=== PATIENT | female | born 1990 | race Caucasian/White ===

== ENCOUNTER → 2016-11-21 | Outpatient (CLI) | payer OTHER | END | disposition home or self-care (01) | LOC: C.PAPS 09:26 | PROVIDERS: ATTEND Obstetrics & Gynecology | DX: Z01.411 Encounter for gynecological examination (general) (routine) with abnormal findings (principal) ==

== ENCOUNTER 2016-12-27 08:07 | Emergency (ER) | payer OTHER ==
[~2016-12-27] VITALS: Ht 165.1 cm; Wt 78.8 kg
[2016-12-27 08:10] VITALS: TEMP 36.9; Ht 165.1 cm; Wt 78.8 kg
[2016-12-27] MEDS ORDERED: SODIUM CHLORIDE 0.9% 1000ML 1,000 ML IV STA (08:21)
[2016-12-27] MEDS ORDERED: ONDANSETRON 4MG OD TAB PO ONE (08:30)
[2016-12-27] MEDS ORDERED: MoRPHine SULFATE 4 MG/ML 1 ML CARP\\VIAL IV STA (08:35)
[2016-12-27 08:55] LABS: BASO % 0.3 %; BASO ABS # 0.03 K/uL (0-0.2); COMPLETE YES; EOS % 1.8 %; HEMATOCRIT 40.5 % (37-47); IG% 0.1 %; LYMPH % 25.1 %; LYMPH ABS # 2.31 K/uL (1.2-3.4); MEAN CELL VOLUME 90.4 fL (80-100); MEAN CORPUSCULAR HEMOGLOBIN 31.9 pg (25-34); MEAN CORPUSCULAR HGB CONC 35.3 g/dl (32-36); MEAN PLATELET VOLUME 10.8 fL (7.4-10.4); NEUT % 66.7 %; PLATELET COUNT 242 K/uL (130-400); RED BLOOD COUNT 4.48 M/uL (4.2-5.4); WHITE BLOOD COUNT 9.19 K/uL (4.8-10.8)
[2016-12-27 09:10] LABS: PROTHROMBIN TIME (PATIENT) 10.4 SECONDS (9.0-12.0)
[2016-12-27 09:13] LABS: BUN/CREATININE RATIO 9.7 (10-20); CALCIUM 8.8 mg/dl (8.5-10.1); CREATININE 0.73 mg/dl (0.60-1.20); POTASSIUM 3.4 mmol/L (3.5-5.1)
[2016-12-27 09:16] LABS: ALB/GLOB RATIO 1.1 (0.9-2)
[2016-12-27 09:58] LABS: URINE APPEARANCE CLEAR (CLEAR); URINE BILIRUBIN NEG (NEG); URINE COLOR YELLOW; URINE NITRITE NEG (NEG); URINE PH 6.5 (4.5-7.5); URINE SPECIFIC GRAVITY 1.011 (1.000-1.030); UROBILINOGEN NEG (NEG)
[2016-12-27 10:00] LABS: MANUAL MICROSCOPIC REQUIRED? NO; REVIEW REQ? NO
--- NOTE | 2016-12-27 11:18 | DIAGNOSTIC IMAGING REPORT ---
LIMITED (US) (transabdominal and endovaginal scanning) CLINICAL HISTORY: Vaginal bleeding. . COMPARISON STUDY: No previous studies for comparison. FINDINGS: The uterus measured 9.2 x 4.8 x 6.1 cm. The maternal right ovary appear normal. There is a 21 mm left ovarian cyst likely representing a corpus luteum. There is a tiny saclike structure present within the uterus with a mean diameter of 3 mm. This likely are presenting an early intrauterine gestational sac. There is a suspected small surrounding subchorionic hematoma. No yolk sac or pole was visualized. Follow-up ultrasonography is recommended. There is trace free fluid, likely physiologic. IMPRESSION: 1. Tiny saclike structure within the uterus measuring 3 mm. This likely represents an early intrauterine gestation. There is a suspected small surrounding subchorionic hemorrhage. Follow-up ultrasonography is recommended to confirm a viable intrauterine Electronically signed by: Devon Beckford M.D. 12/27/2016 11:17 AM Dictated Date/Time: 12/27/2016 11:14 AM
[2016-12-27 11:40] VITALS: BP 113/56; PULSE 80; O2SAT 98
--- NOTE | 2016-12-27 13:58 | EMERGENCY ROOM VISIT NOTE ---
ED Visit Note First contact with patient: 08:15 Chief Complaint: I'm having cramping in my lower abdomen. History of Present Illness: Ms. Lincoln is a 26 year-old white female complaining of pelvic pain. Historically patient reports 2 and para 1. Her last was 4 years ago and she had no complications. She recently diagnosed her current at home and has not had follow-up with her [employer]. She did contact and before coming to the ED and was referred to the ED. Patient reports a acute onset of pelvic cramping that started last evening at approximately 11 PM, 10 hours ago, she reports the discomfort has been constant but has waxed and waned in intensity. Currently she rates her discomfort 6/10. Her pain is nonradiating. She has not taken medications for pain prior to arrival at the hospital. Associated with her pain she reports she's been nauseated but has not vomited, she checked her temperature last evening and it was 101F, she has been having urinary burning and has noted a pinkish drainage from her vagina; she denies any saturation with ailyn blood. Patient denies skin eruptions, skin color changes, upper respiratory tract symptoms, shortness of breath, chest pain, diarrhea, constipation, rectal bleeding, black/tarry stools, hematuria, back/flank pain. Review of Systems: As noted above in history of present illness. All body systems were reviewed and found to be negative as noted above. Past Medical History: As previously noted, Current Medications: Patient denies. Allergies to Medications: Clonazepam. Social History: Patient is currently in school; she feels safe in her home environment; she denies tobacco use. Physical Examination: Vital Signs: Date Time Temp Pulse Resp B/P (MAP) Pulse Ox O2 Delivery O2 Flow Rate FiO2 12/27/16 11:40 80 20 113/56 98 Room Air 12/27/16 09:39 78 20 121/71 100 Room Air 12/27/16 08:57 93 20 107/70 99 Room Air 12/27/16 08:10 36.9 89 18 121/78 99 Room Air GENERAL: 26-year-old female in mild to moderate distress due to pain, nontoxic- appearing, afebrile and hemodynamically stable. NEUROLOGICAL: Awake, alert and oriented to person, place and time. Answering questions appropriately and following commands. Normal gait. Good hand eye coordination. SKIN: Warm, dry and pink. No soft tissue eruptions or trauma noted. HEENT: Atraumatic and normocephalic. PERRLA. Sclera white and conjunctiva pink. Oral cavity moist and pink. Pharynx is nonerythematous or edematous. Speech normal. No lymphadenopathy. Trachea midline. No jugular venous distention. BACK: No tenderness over the bony spine. No CVA tenderness. THORAX: Lungs sounds are clear to auscultation and equal bilaterally with symmetrical chest wall. No wheezing, rales or rhonchi. No crepitus, tenderness , subcutaneous air or deformities noted. HEART: Regular rate and rhythm. No gallops, rubs or murmurs are appreciated. ABDOMEN: Flat, soft and nontender. Positive bowel sounds in all quadrants. No guarding, rigidity or organomegaly. PELVIC: External genitalia: Shaved hair distribution over labia minor without pubic lice. Vulva with a small genital wart, without ulcers, vesicles or erythema. Urethra without discharge or inflammation. Anus without hemorrhoids , discharge or skin tags. Speculum exam: Vagina pink, mucosa not atrophy, slight whitish discharge. Cervix 2 cm in diameter with a small closed os and around without lesions, discharge or ectropion. Clear cervical mucus present. No left to bleeding at the oz and no blood in the vaginal vault. EXTREMITIES: Moves all extremities well on command and with purpose. All distal neurovascular statuses are intact and equal bilaterally. ED Course: Patient is assessed as noted above. Laboratory Testing: Test 12/27/16 08:41 12/27/16 09:50 Range/Units White Blood Count 9.19 4.8-10.8 K/uL Red Blood Count 4.48 4.2-5.4 M/uL Hemoglobin 14.3 12.0-16.0 g/dL Hematocrit 40.5 37-47 % Mean Corpuscular Volume 90.4 80-100 fL Mean Corpuscular Hemoglobin 31.9 25-34 pg Mean Corpuscular Hemoglobin Concent 35.3 32-36 g/dl Platelet Count 242 130-400 K/uL Mean Platelet Volume 10.8 7.4-10.4 fL Neutrophils (%) (Auto) 66.7 % Lymphocytes (%) (Auto) 25.1 % Monocytes (%) (Auto) 6.0 % Eosinophils (%) (Auto) 1.8 % Basophils (%) (Auto) 0.3 % Neutrophils # (Auto) 6.12 1.4-6.5 K/uL Lymphocytes # (Auto) 2.31 1.2-3.4 K/uL Monocytes # (Auto) 0.55 0.11-0.59 K/uL Eosinophils # (Auto) 0.17 0-0.5 K/uL Basophils # (Auto) 0.03 0-0.2 K/uL RDW Standard Deviation 41.4 36.4-46.3 fL RDW Coefficient of Variation 12.5 11.5-14.5 % Immature Granulocyte % (Auto) 0.1 % Immature Granulocyte # (Auto) 0.01 0.00-0.02 K/uL Prothrombin Time 10.4 9.0-12.0 SECONDS Prothromb Time International Ratio 1.0 0.9-1.1 Activated Partial Thromboplast Time 26.6 21.0-31.0 SECONDS Partial Thromboplastin Ratio 1.0 Sodium Level 138 136-145 mmol/L Potassium Level 3.4 3.5-5.1 mmol/L Chloride Level 106 98-107 mmol/L Carbon Dioxide Level 24 21-32 mmol/L Anion Gap 8.0 3-11 mmol/L Blood Urea Nitrogen 7 7-18 mg/dl Creatinine 0.73 0.60-1.20 mg/dl Est Creatinine Clear Calc Drug Dose 123.3 ml/min Estimated GFR () 133.6 Estimated GFR (Non- 115.3 BUN/Creatinine Ratio 9.7 10-20 Random Glucose 98 70-99 mg/dl Calcium Level 8.8 8.5-10.1 mg/dl Total Bilirubin 0.4 0.2-1 mg/dl Aspartate Amino Transf (AST/SGOT) 17 15-37 U/L Alanine Aminotransferase (ALT/SGPT) 22 12-78 U/L Alkaline Phosphatase 65 45-117 U/L Total Protein 8.0 6.4-8.2 gm/dl Albumin 4.2 3.4-5.0 gm/dl Globulin 3.8 2.5-4.0 gm/dl Albumin/Globulin Ratio 1.1 0.9-2 Human Chorionic Gonadotropin, Quant 672 mIU/mL Urine Color YELLOW Urine Appearance CLEAR CLEAR Urine pH 6.5 4.5-7.5 Urine Specific [place] 1.011 1.000-1.030 Urine Protein NEG NEG Urine Glucose (UA) NEG NEG Urine Ketones NEG NEG Urine Occult Blood NEG NEG Urine Nitrite NEG NEG Urine Bilirubin NEG NEG Urine Urobilinogen NEG NEG Urine Leukocyte Esterase NEG NEG Ultrasound: Was reviewed by myself and read by the radiologist showing a tiny saclike structure within the uterus measuring 3 mm; this likely represents an early intrauterine gestation. Radiologist notes that there is a suspected small surrounding subchorionic hemorrhage. Patient was hydrated with normal saline and received 4 mg of morphine IV and 4 mg of Zofran IV for her symptoms. Patient was reassessed multiple times during her stay in the emergency department. Patient's case was consulted with Dr. Izaguirre, utility sales and service manager; he recommended office follow-up and repeat check of beta hCG in 2 days. Patient's case was reviewed with Dr. Terrell; we agreed on diagnostic approach, treatment, disposition and plan. Patient was educated about today's findings and instructed on her treatment plan ; she verbalized understanding and agreement with this plan. Clinical Impression: Pelvic cramping. Vaginal bleeding. Decision-Making: Initially my differential diagnosis I considered miscarriage, abnormal vaginal bleeding, ovarian cyst rupture, ovarian torsion, ectopic and other causes. Disposition: Patient discharged home in stable condition accompanied by male friend; prior to departure she was reassessed and subjectively reported she was feeling much better and rated her discomfort 2/10. Plan: Patient was encouraged use 650 mg of acetaminophen every 6 hours as needed for pain. Patient was encouraged to monitor pad count 4 bleeding. Patient is encouraged to have vaginal rest until followed up with [employer]. Patient is encouraged to contact her [employer] doctor's office for scheduling of her follow-up beta hCG. Patient was encouraged return ED for worsening/uncontrolled pain, worsening/ uncontrolled vaginal bleeding or any new/concerning symptoms.
== END 2016-12-27 12:10 | disposition home or self-care (01) ==
LOC: C.EDB 08:10
DX: R10.2 Pelvic and perineal pain (principal); N93.8 Other specified abnormal uterine and vaginal bleeding

== ENCOUNTER → 2017-01-16 | Outpatient (CLI) | payer OTHER ==
[2017-01-16 15:02] LABS: URINE APPEARANCE CLEAR (CLEAR); URINE BILIRUBIN NEG (NEG); URINE COLOR YELLOW; URINE NITRITE NEG (NEG); URINE SPECIFIC GRAVITY 1.026 (1.000-1.030); UROBILINOGEN NEG (NEG)
[2017-01-16 15:10] LABS: MANUAL MICROSCOPIC REQUIRED? NO; REVIEW REQ? NO
== END | disposition home or self-care (01) ==
LOC: C.LABSPEC 14:00
PROVIDERS: ATTEND Obstetrics & Gynecology
DX: Z34.91 Encounter for supervision of normal pregnancy, unspecified, first trimester (principal)

== ENCOUNTER → 2017-01-24 | Outpatient (CLI) | payer OTHER ==
[2017-01-24 10:19] LABS: BASO % 0.3 %; BASO ABS # 0.03 K/uL (0-0.2); COMPLETE YES; EOS % 1.5 %; HEMATOCRIT 37.2 % (37-47); IG% 0.2 %; LYMPH % 25.2 %; LYMPH ABS # 2.28 K/uL (1.2-3.4); MEAN CORPUSCULAR HEMOGLOBIN 31.5 pg (25-34); MEAN CORPUSCULAR HGB CONC 34.7 g/dl (32-36); MEAN PLATELET VOLUME 11.1 fL (7.4-10.4); MONO % 5.2 %; NEUT % 67.6 %; PLATELET COUNT 235 K/uL (130-400); RED BLOOD COUNT 4.09 M/uL (4.2-5.4); WHITE BLOOD COUNT 9.06 K/uL (4.8-10.8)
[2017-01-26 00:31] LABS: CHLAMYDIA TRACH RNA*** NOT DETECTED (NOT DETECTED); GC (NEIS GONORRHOEAE)RNA** NOT DETECTED (NOT DETECTED)
== END | disposition home or self-care (01) ==
LOC: C.LAB1850 09:05
PROVIDERS: ATTEND Obstetrics & Gynecology
DX: Z34.91 Encounter for supervision of normal pregnancy, unspecified, first trimester (principal)

== ENCOUNTER 2017-02-22 22:55 | Emergency (ER) | payer OTHER ==
[~2017-02-22] VITALS: Ht 165.1 cm; Wt 79.0 kg
[2017-02-22 22:57] VITALS: TEMP 36.8; Ht 165.1 cm; Wt 79.0 kg
--- NOTE | 2017-02-22 23:33 | EMERGENCY ROOM VISIT NOTE ---
History Report prepared by Ja: Kleber Hassan Under the Supervision of: Dr. Maisha Avendaño D.O. First contact with patient: 23:03 Chief Complaint: ED VAG BLEEDING Stated Complaint: BLEEDING,CRAMPING 13 WEEKS History of Present Illness The patient is a 26 year old female who presents to the Emergency Room with complaints of persistent abnormal vaginal bleeding that began earlier this evening. While the patient and her were having intercourse, the patient began to have abnormal vaginal bleeding with associated lower abdominal/back cramping. She is currently 13 weeks . This is her second . G2, P1, A0. She has a past medical history of kidney stones, but does not have any other past medical history. She states that she does not feel like this is abnormal in anyway compared to her first . She is not on any blood thinners or Aspirin. She states that she has received care for this with an Ultrasound that was normal. She believes that her blood type is B+. Source of History: patient Onset: earlier this evening Position: other (Vagina) Symptom Intensity: moderate Quality: other (Bleeding) Timing: other (Persistent) Associated Symptoms: + abdominal pain (cramping, lower), + back pain (lower) Note: She is 13 weeks . Review of Systems See HPI for pertinent positives & negatives. A total of 10 systems reviewed and were otherwise negative. Past Medical & Surgical Medical Problems: (1) HTN in , chronic (2) Meningitis Family History Cancer Diabetes mellitus Heart disease Hypertension Kidney stones Lung disease Social History Smoking Status: Never Smoker Smokeless Tobacco Use: No Alcohol Use: none Marital Status: Housing Status: lives with family Occupation Status: employed Current/Historical Medications Scheduled PRN Ondansetron Hcl (Zofran), 4 MG PO Q6H PRN for Nausea Allergies Coded Allergies: Clonazepam (Unverified Adverse Reaction, Severe, throat swelling, cant breathe, 12/27/16) Physical Exam Vital Signs Date Time Temp Pulse Resp B/P (MAP) Pulse Ox O2 Delivery O2 Flow Rate FiO2 02/23/17 01:54 93 18 114/65 98 02/23/17 00:19 79 18 125/65 100 Room Air 02/22/17 22:57 36.8 112 20 117/70 98 Room Air Physical Exam HEENT: Head - normocephalic and atraumatic Pupils are equal, round, and reactive to light. Extraocular eye muscles are intact, and sclera are anicteric. Nose - moist nasal mucosa without discharge. Mouth - moist buccal mucosa. Oropharynx is nonerythematous and there is no tonsillar exudate or edema noted. Neck: Supple; no JVD, nuchal rigidity, cervical lymphadenopathy. Heart: Regular rate and rhythm. There is a normal S1 and S2 with no murmurs, clicks, or gallops appreciated. Lungs: Clear to auscultation bilaterally with no wheezes, rales, or rhonchi. Abdomen: Soft, mildly tender with palpation in the suprapubic region, nondistended, with good bowel sounds. There are no palpable pulsatile masses or hepatosplenomegaly. There is no guarding, rigidity, or rebound noted. Extremities: No evidence of cyanosis, clubbing, or edema. There are easily palpable peripheral pulses. Skin: warm and dry with good turgor and no rashes. Medical Decision & Procedures ER Provider Diagnostic Interpretation: Radiology results as stated below per my review and the radiologist's interpretation: US OB 2nd TRIMESTER: Single live intrauterine measuring 14 weeks with heart rate of 157 bpm. Complex hypoechoic area in the right uterus measures 1.8 x 3.0 x 1.7 cm. may be related to history fo known subchorionic hemorrhage. Additional small hypoechoic area in the placenta near the cord insertion, unclear etiology/significance. Unremarkable ovaries. Radiologist: Puja Almanza M.D. Laboratory Results 02/22/17 23:29 Red Blood Count 4.23, Mean Corpuscular Volume 91.0, Mean Corpuscular Hemoglobin 32.6, Mean Corpuscular Hemoglobin Concent 35.8, Mean Platelet Volume 10.9, Neutrophils (%) (Auto) 71.6, Lymphocytes (%) (Auto) 21.0, Monocytes (%) (Auto) 5.6, Eosinophils (%) (Auto) 1.2, Basophils (%) (Auto) 0.2, Neutrophils # (Auto) 9.90, Lymphocytes # (Auto) 2.91, Monocytes # (Auto) 0.77, Eosinophils # (Auto) 0.16, Basophils # (Auto) 0.03 Test 02/22/17 23:29 White Blood Count 13.83 K/uL (4.8-10.8) Red Blood Count 4.23 M/uL (4.2-5.4) Hemoglobin 13.8 g/dL (12.0-16.0) Hematocrit 38.5 % (37-47) Mean Corpuscular Volume 91.0 fL (80-100) Mean Corpuscular Hemoglobin 32.6 pg (25-34) Mean Corpuscular Hemoglobin Concent 35.8 g/dl (32-36) Platelet Count 226 K/uL (130-400) Mean Platelet Volume 10.9 fL (7.4-10.4) Neutrophils (%) (Auto) 71.6 % Lymphocytes (%) (Auto) 21.0 % Monocytes (%) (Auto) 5.6 % Eosinophils (%) (Auto) 1.2 % Basophils (%) (Auto) 0.2 % Neutrophils # (Auto) 9.90 K/uL (1.4-6.5) Lymphocytes # (Auto) 2.91 K/uL (1.2-3.4) Monocytes # (Auto) 0.77 K/uL (0.11-0.59) Eosinophils # (Auto) 0.16 K/uL (0-0.5) Basophils # (Auto) 0.03 K/uL (0-0.2) RDW Standard Deviation 42.8 fL (36.4-46.3) RDW Coefficient of Variation 13.0 % (11.5-14.5) Immature Granulocyte % (Auto) 0.4 % Immature Granulocyte # (Auto) 0.06 K/uL (0.00-0.02) Human Chorionic Gonadotropin, Quant 83198 mIU/mL Laboratory results per my review. ED Course 2303: Past medical records reviewed. The patient was evaluated in room A2. A complete history and physical exam was performed. An IV lock was initiated and labs were drawn as above. The patient had fairly moderate bleeding upon my initial exam. The patient went for ultrasound of the which revealed a subchorionic hemorrhage. The bleeding had slowed down. 0154: Upon reevaluation, the patient is resting. I discussed findings and results with her. She verbalized agreement of the treatment plan. She was discharged home. Medical Decision The patient is a 26 year old female who presents to the ED with vaginal bleeding. Differential diagnosis includes spontaneous miscarriage, threatened miscarriage, and subchorionic hemorrhage. Laboratory Results: Quantitative HCG 49,340, white blood cell count 13.8, stable H&H, blood type is B+. This a 26-year-old female patient who is who presents to the emergency department at 13 weeks . The patient developed moderate vaginal bleeding following intercourse tonight. She went from a sound which revealed evidence of a subchorionic hemorrhage. At this time there was a normal heart rate consistent with a viable . I've encouraged patient to follow-up with the product marketing director in the next couple of days for recheck. She is to practice pelvic rest until that time. I've asked her to avoid strenuous activity over the next couple of days. Medication Reconcilliation Current Medication List: was personally reviewed by me Blood Pressure Screening Patient's blood pressure: Normal blood pressure Blood pressure disposition: Did not require urgent referral Impression Primary Impression: Subchorionic hematoma Additional Impression: Second trimester bleeding Scribe Attestation The scribe's documentation has been prepared under my direction and personally reviewed by me in its entirety. I confirm that the note above accurately reflects all work, treatment, procedures, and medical decision making performed by me. Departure Information Dispostion Home / Self-Care Referrals No Doctor, Assigned (PCP) Forms HOME CARE DOCUMENTATION FORM, IMPORTANT VISIT INFORMATION, WORK / SCHOOL INSTRUCTIONS Patient Instructions My [facility] [employer] Additional Instructions Rest. Nothing in the vagina until follow up with OB. No strenuous activity or heavy lifting. No work til Monday. Call OB this AM for an appointment Problem Qualifiers Primary Impression: Subchorionic hematoma Fetus number: single or unspecified fetus Trimester: second trimester Qualified Codes: O41.8X20 - Other specified disorders of amniotic fluid and membranes, second trimester, not applicable or unspecified; O46.8X2 - Other antepartum hemorrhage, second trimester
[2017-02-22 23:42] LABS: BASO % 0.2 %; BASO ABS # 0.03 K/uL (0-0.2); EOS % 1.2 %; EOS ABS # 0.16 K/uL (0-0.5); HEMATOCRIT 38.5 % (37-47); HEMOGLOBIN 13.8 g/dL (12.0-16.0); IG# 0.06 K/uL (0.00-0.02); LYMPH ABS # 2.91 K/uL (1.2-3.4); MEAN CORPUSCULAR HEMOGLOBIN 32.6 pg (25-34); MEAN CORPUSCULAR HGB CONC 35.8 g/dl (32-36); MEAN PLATELET VOLUME 10.9 fL (7.4-10.4); MONO % 5.6 %; MONO ABS # 0.77 K/uL (0.11-0.59); NEUT % 71.6 %; PLATELET COUNT 226 K/uL (130-400); RED CELL DISTRIBUTION WIDTH SD 42.8 fL (36.4-46.3); WHITE BLOOD COUNT 13.83 K/uL (4.8-10.8)
[2017-02-22] MEDS ORDERED: ONDA4TAB46 PO (23:47)
[2017-02-23 01:54] VITALS: BP 114/65; PULSE 93; O2SAT 98
--- NOTE | 2017-02-23 07:39 | DIAGNOSTIC IMAGING REPORT ---
ULTRASOUND CLINICAL HISTORY: eval for spontaneous miscarriage. Vaginal bleeding. COMPARISON STUDY: ultrasound 12/27/2016. FINDINGS: There is a single intrauterine gestational sac with a pole. heart rate was 157 bpm. Normal bilateral ovaries. There is an anterior/fundal placenta. Complex heterogeneous area within the right side of the uterus measuring 3.0 x 1.8 X 1.7 cm. This is consistent with a small subchorionic hematoma. No mass effect along the gestational sac. The age measured with the the head circumference, biparietal diameter, abdominal circumference, and femur length was 14 weeks and 0 days plus or minus one week. Small cystic structure within the placenta adjacent to the cord insertion. This measures 1.5 cm. IMPRESSION: 1. Single viable 14 week intrauterine gestation with a heart rate of 157 bpm. 2. Small subchorionic hematoma measuring 3.0 x 1.8 x 1.7 cm. 3. A 1.5 cm cystic structure adjacent to the cord insertion within the placenta. This favors a small placental cyst. Although typically benign given the small size, continued follow-up ultrasounds at a tertiary hospital are recommended to exclude the remote possibility of an umbilical cord constriction given the location adjacent to the cord insertion. 4. These findings were called/faxed to the Emergency Department following dictation. Electronically signed by: Magno Michel M.D. 02/23/2017 7:38 AM Dictated Date/Time: 02/23/2017 7:27 AM
[2017-07-31] MEDS ORDERED: SERT50TA PO (16:56)
[2017-07-31] MEDS ORDERED: CLR10 PO (22:54)
[2017-07-31] MEDS ORDERED: CEPH500C PO (23:10)
[2017-08-15] MEDS ORDERED: PRENTAB65 PO (12:39)
[2017-08-15] MEDS ORDERED: ONDA4TAB46 PO (12:39)
== END 2017-02-23 01:54 | disposition home or self-care (01) ==
LOC: C.EDB 22:56 → C.EDA 02-23 01:54
DX: O46.92 Antepartum hemorrhage, unspecified, second trimester (principal); Z3A.13 13 weeks gestation of pregnancy; S37.62XA Contusion of uterus, initial encounter; X58.XXXA Exposure to other specified factors, initial encounter; I10 Essential (primary) hypertension; Z86.19 Personal history of other infectious and parasitic diseases; Z88.8 Allergy status to other drugs, medicaments and biological substances; Z80.9 Family history of malignant neoplasm, unspecified; Z83.3 Family history of diabetes mellitus; Z82.49 Family history of ischemic heart disease and other diseases of the circulatory system; Z84.1 Family history of disorders of kidney and ureter

== ENCOUNTER → 2017-03-13 | Outpatient (CLI) | payer OTHER ==
[~2017-03-13] MED LIST: ONDA4TAB46 PO
== END | disposition home or self-care (01) ==
LOC: C.LAB1850 08:59
PROVIDERS: ATTEND Obstetrics & Gynecology
DX: Z34.92 Encounter for supervision of normal pregnancy, unspecified, second trimester (principal); Z3A.00 Weeks of gestation of pregnancy not specified

== ENCOUNTER → 2017-03-22 | Outpatient (CLI) | payer OTHER | END | disposition home or self-care (01) | LOC: C.LAB1850 09:09 | PROVIDERS: ATTEND Obstetrics & Gynecology | DX: Z00.00 Encounter for general adult medical examination without abnormal findings (principal); Z34.92 Encounter for supervision of normal pregnancy, unspecified, second trimester ==

== ENCOUNTER → 2017-06-06 | Outpatient (CLI) | payer OTHER ==
[2017-06-08 15:51] LABS: QUANTIF MITOGEN-NIL 8.91 IU/ML; QUANTIFERON NEGATIVE (NEGATIVE); QUANTIFERON NIL 0.04 IU/ML
== END | disposition home or self-care (01) ==
LOC: C.LABBC 13:06
PROVIDERS: ATTEND Nurse Practitioner Adult Health
DX: Z02.1 Encounter for pre-employment examination (principal); Z11.1 Encounter for screening for respiratory tuberculosis

== ENCOUNTER 2017-07-07 08:10 | Outpatient (CLI) | payer OTHER ==
[~2017-07-07] VITALS: Ht 165.1 cm; Wt 88.9 kg
[2017-07-07 09:18] LABS: HEMATOCRIT 31.2 % (37-47); HEMOGLOBIN 10.7 g/dL (12.0-16.0); MEAN CELL VOLUME 89.9 fL (80-100); MEAN CORPUSCULAR HEMOGLOBIN 30.8 pg (25-34); MEAN PLATELET VOLUME 10.6 fL (7.4-10.4); PLATELET COUNT 212 K/uL (130-400); RED CELL DISTRIBUTION WIDTH CV 13.5 % (11.5-14.5)
[2017-07-07 09:22] LABS: MEAN CORPUSCULAR HGB CONC 34.3 g/dl (32-36)
[2017-07-07] MEDS ORDERED: PRENTAB26 PO (09:25)
[2017-07-07] MEDS ORDERED: ESCI1TAB10 PO (09:25)
[2017-07-07 09:26] VITALS: Ht 165.1 cm; Wt 88.9 kg
[2017-07-07 10:17] LABS: ALBUMIN 2.8 gm/dl (3.4-5.0); ALKALINE PHOSPHATASE 94 U/L (45-117); ALT/SGPT 17 U/L (12-78); AST/SGOT 20 U/L (15-37); BLOOD UREA NITROGEN 5 mg/dl (7-18); CALCIUM 8.2 mg/dl (8.5-10.1); CARBON DIOXIDE 24 mmol/L (21-32); CREATININE 0.54 mg/dl (0.60-1.20); GLUCOSE 97 mg/dl (70-99); POTASSIUM 3.6 mmol/L (3.5-5.1); SODIUM 138 mmol/L (136-145); TOTAL PROTEIN 6.6 gm/dl (6.4-8.2)
== END 2017-07-07 10:29 | disposition home or self-care (01) ==
LOC: C.OPB 08:10 → C.LD 08:11 → C.OPB 10:29
PROVIDERS: ATTEND Obstetrics & Gynecology
DX: O36.8190 Decreased fetal movements, unspecified trimester, not applicable or unspecified (principal); Z3A.00 Weeks of gestation of pregnancy not specified

== ENCOUNTER 2017-07-18 16:24 | Emergency (ER) | payer OTHER ==
[~2017-07-18] VITALS: Ht 165.1 cm; Wt 88.5 kg
[~2017-07-18 16:24] MED LIST changes: +ESCI1TAB10 PO; -ONDA4TAB46 PO; +PRENTAB26 PO
[2017-07-18 16:28] VITALS: TEMP 36.8; Ht 165.1 cm; Wt 88.5 kg
[2017-07-18] MEDS ORDERED: ACETAMINOPHEN 500 MG TAB PO STA (16:38)
[2017-07-18] MEDS ORDERED: DiphenhydrAMINE HCL 50 MG/ML VIAL IV STA (16:38)
[2017-07-18] MEDS ORDERED: ONDANSETRON INJ 2 MG/ML 2 ML VIAL IV STA (16:38)
[2017-07-18] MEDS ORDERED: MAGNESIUM SULFATE 1GM / D5W 1 GM BAG IV STA (16:38)
--- NOTE | 2017-07-18 16:42 | EMERGENCY ROOM VISIT NOTE ---
History Report prepared by Ja: Zakia Abrams Under the Supervision of: Dr. Sunil Higgins M.D. First contact with patient: 16:31 Chief Complaint: REFERRED BY DOCTOR Stated Complaint: MRI PER DR History of Present Illness The patient is a 26 year old female who presents to the Emergency Room with a referral by Dr. Cooper for an MRI today. The patient states that she has had numbness in her face, tongue, hands, and feet. She also reports having a waxing and waning headache over the last 4 days but that as of last night the headache has been constant. She reports taking Tylenol for her headache but that it did not relieve her pain. The patient states that she is and that this is her second . She reports that she has had very bad morning sickness and hemorrhaging with this . The patient states that she has a history of neck problems, but reports no other pertinent past medical history. She states that she takes Prozac daily. Source of History: patient Onset: today Position: other (generalized) Quality: other (referral by Dr. Cooper ) Timing: constant Associated Symptoms: + headache, + numbness (in face, tongue, hands, feet) Review of Systems See HPI for pertinent positives & negatives. A total of 10 systems reviewed and were otherwise negative. Past Medical & Surgical Medical Problems: (1) HTN in , chronic (2) Meningitis Family History Cancer Diabetes mellitus Heart disease Hypertension Kidney stones Lung disease Social History Smoking Status: Never Smoker Alcohol Use: none Marital Status: Housing Status: lives with family Occupation Status: employed Current/Historical Medications Scheduled Amoxicillin (Amoxil), 500 MG PO TID Loratadine (Claritin), 1 TAB PO DAILY Sertraline (Zoloft), 50 MG PO DAILY Allergies Coded Allergies: Clonazepam (Unverified Adverse Reaction, Severe, throat swelling, cant breathe, 07/18/17) Physical Exam Vital Signs Date Time Temp Pulse Resp B/P (MAP) Pulse Ox O2 Delivery O2 Flow Rate FiO2 07/18/17 20:35 87 18 118/73 99 07/18/17 19:52 92 18 118/70 99 Room Air 07/18/17 18:01 85 17 120/74 100 Room Air 07/18/17 17:28 82 07/18/17 16:28 36.8 89 18 120/78 100 Room Air Physical Exam GENERAL: Awake, alert, well-appearing, in no acute distress HENT: Normocephalic, atraumatic. Oropharynx unremarkable. No evidence of meningitis or encephalitis upon examination. EYES: Normal conjunctiva. Sclera non-icteric. NECK: Supple. No nuchal rigidity. FROM. No JVD. RESPIRATORY: Clear to auscultation. CARDIAC: Regular rate, normal rhythm. Extremities warm and well perfused. Pulses equal. ABDOMEN: Soft, non-distended. No tenderness to palpation. No rebound or guarding. No masses. RECTAL: Deferred. MUSCULOSKELETAL: Chest examination reveals no tenderness. The back is symmetrical on inspection without obvious abnormality. There is no CVA tenderness to palpation. No joint edema. LOWER EXTREMITIES: Calves are equal size bilaterally and non-tender. No edema. No discoloration. NEURO: Normal sensorium. No sensory or motor deficits noted. SKIN: No rash or jaundice noted. Medical Decision & Procedures ER Provider Diagnostic Interpretation: Radiology results as stated below per my review and radiologist interpretation: MRV HEAD WITHOUT CONTRAST CLINICAL HISTORY: 26 years-old Female presenting with Pt c/o headache. TECHNIQUE: Multisequence, multiplanar MR venography of the head was performed without the use of intravenous contrast. 3-D volumetric and/or maximum intensity projection (MIP) images were subsequently reconstructed for review. IV contrast: None. COMPARISON: None. FINDINGS: Localizer images: Unremarkable. Dural venous sinuses demonstrate normal flow related enhancement. The caliber of the proximal left transverse sinus is diminutive, which is likely on a congenital basis. The straight sinus and great vein of Santos are patent. Internal cerebral veins patent. Cortical veins also appear grossly patent more prominently on the left, which may be related to the congenitally narrow proximal left transverse sinus. No convincing evidence of dural venous thrombosis. Limited evaluation of intracranial arteries within normal limits. 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 No convincing evidence of dural venous sinus thrombosis. If this remains of clinical concern, a contrast enhanced study could be obtained although suspicion for this diagnosis is very low. Electronically signed by: Chad Doe M.D. 07/18/2017 7:36 PM Dictated Date/Time: 07/18/2017 7:31 PM BRAIN WITHOUT CONTRAST CLINICAL HISTORY: 26 years-old Female presenting with Pt c/o headache, 34 weeks , numbness in the extremities involving the feet and hands, left-sided facial numbness for 3 to 4 days, nausea and vomiting. TECHNIQUE: Multisequence, multiplanar MR imaging of the brain was performed without the use of intravenous contrast. IV contrast: None. COMPARISON: None. FINDINGS: Ventricles and sulci normal in size. Brain parenchyma normal in appearance with preserved mcknight-white differentiation. No mass effect or midline shift. No restricted diffusion to suggest acute ischemia. No hemorrhage. No extra-axial fluid collection. T2 skull base flow voids preserved. Bone marrow signal intensity within the calvarium within normal limits. IMPRESSION: 1. No acute intracranial abnormality. Electronically signed by: Chad Doe M.D. 07/18/2017 7:54 PM Dictated Date/Time: 07/18/2017 7:52 PM Laboratory Results 07/18/17 17:05 Red Blood Count 3.65, Mean Corpuscular Volume 90.7, Mean Corpuscular Hemoglobin 30.4, Mean Corpuscular Hemoglobin Concent 33.5, Mean Platelet Volume 11.6, Neutrophils (%) (Auto) 70.9, Lymphocytes (%) (Auto) 17.2, Monocytes (%) (Auto) 10.4, Eosinophils (%) (Auto) 1.0, Basophils (%) (Auto) 0.1, Neutrophils # (Auto ) 8.41, Lymphocytes # (Auto) 2.04, Monocytes # (Auto) 1.24, Eosinophils # (Auto ) 0.12, Basophils # (Auto) 0.01 07/18/17 17:05 Test 07/18/17 17:05 07/18/17 17:20 White Blood Count 11.87 K/uL (4.8-10.8) Red Blood Count 3.65 M/uL (4.2-5.4) Hemoglobin 11.1 g/dL (12.0-16.0) Hematocrit 33.1 % (37-47) Mean Corpuscular Volume 90.7 fL (80-100) Mean Corpuscular Hemoglobin 30.4 pg (25-34) Mean Corpuscular Hemoglobin Concent 33.5 g/dl (32-36) Platelet Count 230 K/uL (130-400) Mean Platelet Volume 11.6 fL (7.4-10.4) Neutrophils (%) (Auto) 70.9 % Lymphocytes (%) (Auto) 17.2 % Monocytes (%) (Auto) 10.4 % Eosinophils (%) (Auto) 1.0 % Basophils (%) (Auto) 0.1 % Neutrophils # (Auto) 8.41 K/uL (1.4-6.5) Lymphocytes # (Auto) 2.04 K/uL (1.2-3.4) Monocytes # (Auto) 1.24 K/uL (0.11-0.59) Eosinophils # (Auto) 0.12 K/uL (0-0.5) Basophils # (Auto) 0.01 K/uL (0-0.2) RDW Standard Deviation 44.8 fL (36.4-46.3) RDW Coefficient of Variation 13.6 % (11.5-14.5) Immature Granulocyte % (Auto) 0.4 % Immature Granulocyte # (Auto) 0.05 K/uL (0.00-0.02) Anion Gap 6.0 mmol/L (3-11) Est Creatinine Clear Calc Drug Dose 186.9 ml/min Estimated GFR () > 150.0 Estimated GFR (Non- 134.6 BUN/Creatinine Ratio 9.8 (10-20) Calcium Level 8.8 mg/dl (8.5-10.1) Total Bilirubin 0.2 mg/dl (0.2-1) Direct Bilirubin < 0.1 mg/dl (0-0.2) Aspartate Amino Transf (AST/SGOT) 16 U/L (15-37) Alanine Aminotransferase (ALT/SGPT) 16 U/L (12-78) Alkaline Phosphatase 104 U/L (45-117) Total Protein 7.1 gm/dl (6.4-8.2) Albumin 3.1 gm/dl (3.4-5.0) Lipase 143 U/L (73-393) Urine Color YELLOW Urine Appearance CLEAR (CLEAR) Urine pH 7.0 (4.5-7.5) Urine Specific [place] 1.012 (1.000-1.030) Urine Protein NEG (NEG) Urine Glucose (UA) NEG (NEG) Urine Ketones NEG (NEG) Urine Occult Blood NEG (NEG) Urine Nitrite POS (NEG) Urine Bilirubin NEG (NEG) Urine Urobilinogen NEG (NEG) Urine Leukocyte Esterase TRACE (NEG) Urine WBC (Auto) 5-10 /hpf (0-5) Urine RBC (Auto) 0-4 /hpf (0-4) Urine Hyaline Casts (Auto) 1-5 /lpf (0-5) Urine Epithelial Cells (Auto) >30 /lpf (0-5) Urine Bacteria (Auto) 2+ (NEG) Labs reviewed by ED physician. Medications Administered Medications (Trade) Dose Ordered Sig/Jeimy Route Start Time Stop Time Status Last Admin Dose Admin Acetaminophen (Tylenol Tab) 1,000 mg NOW STAT PO 07/18/17 16:38 07/18/17 16:43 DC 07/18/17 17:14 1,000 MG Ondansetron HCl (Zofran Inj) 4 mg NOW STAT IV 07/18/17 16:38 07/18/17 16:43 DC 07/18/17 17:14 4 MG Magnesium Sulfate (Magnesium Sulfate 1gm / D5W) 1 gm NOW STAT IV 07/18/17 16:38 07/18/17 16:43 DC 07/18/17 17:14 1 GM Diphenhydramine HCl (Benadryl Inj) 50 mg NOW STAT IV 07/18/17 16:38 07/18/17 16:43 DC 07/18/17 17:14 50 MG Sodium Chloride 1,000 ml @ 999 mls/hr Q1H1M STAT IV 07/18/17 16:48 07/18/17 17:48 DC 07/18/17 17:14 999 MLS/HR Ceftriaxone Sodium (Rocephin Inj) 1 gm NOW STAT IV 07/18/17 18:31 07/18/17 18:33 DC 07/18/17 19:52 1 GM Sodium Chloride ([place] Nasal [place]) 2 sprays NOW STAT NA 07/18/17 20:09 07/18/17 20:12 DC 07/18/17 20:26 225 SPRAYS Loratadine (Claritin Tab) 10 mg NOW STAT PO 07/18/17 20:09 07/18/17 20:12 DC 07/18/17 20:25 10 MG Morphine Sulfate (MoRPHine SULFATE INJ) 8 mg NOW STAT IV 07/18/17 20:12 07/18/17 20:13 DC 07/18/17 20:25 8 MG Amoxicillin (Amoxil Cap) 500 mg STK-MED ONCE PO 07/18/17 20:20 07/18/17 20:21 DC 07/18/17 20:25 500 MG ED Course 1632: Past medical records reviewed. The patient was evaluated in room C11B. A complete history and physical examination was performed. 1638: Ordered Benadryl Inj 50 mg IV, Magnesium Sulfate 1 gm IV, Zofran Inj 4 mg IV, Tylenol Tab 1,000 mg PO. 1644: I spoke to the patient about her past medical history of meningitis. The patient says her symptoms do not feel like when she had meningitis. I offered an LP and she steadfastly refused. She states that she will realize when she needs an LP. 1648: Ordered Sodium Chloride 1,000 ml @ 999 mls/hr IV. 174: I checked on the patient and she is feeling much better. 1830: Ordered Rocephin Inj 1 gm IV. 2008: Ordered Claritin Tab 10 mg PO, Amoxicillin 500 mg PO, Sodium Chloride 2 sprays. 2011: Ordered Morphine Sulfate 8 mg IV. 2014: Upon reexamination the patient is resting. I discussed results and treatment plan with the patient. She verbalizes agreement and understanding. The patient is ready for discharge. Medical Decision Differential diagnosis: Etiologies such as migraine headache, meningitis, sinusitis, CO exposure, ICH, SAH, infection, tumor, headache, sinus thrombosis, arterial dissection, as well as others were entertained. This is a 26-year-old female who presents the emergency department after being sent in by her OB for MR I and MRV. The patient does have an elevation in her white blood cell count and does have a history of meningitis. Based on these findings I strongly recommended that the patient have a lumbar puncture performed however she is adamantly refusing. She does appear to have a urinary tract infection therefore was started on Rocephin. An IV was established, the patient was given normal saline bolus, Tylenol, Zofran, Benadryl. Repeat examination revealed much improvement in the patient's symptoms. I did again recommend that the patient have a lumbar puncture which she refused. I am wondering if the patient is suffering from sinusitis. Her pain is in the front part of her head. I will start her on Rocephin to cover her urine and continue her on amoxicillin at home. The patient has a normal MRI as well as a normal MRV. I stressed the need for follow-up with neurology. Patient was in agreement with the treatment plan. Medication Reconcilliation Current Medication List: was personally reviewed by me Blood Pressure Screening Patient's blood pressure: Normal blood pressure Impression Primary Impression: Headache Scribe Attestation The scribe's documentation has been prepared under my direction and personally reviewed by me in its entirety. I confirm that the note above accurately reflects all work, treatment, procedures, and medical decision making performed by me. Departure Information Dispostion Home / Self-Care Prescriptions Amoxicillin (AMOXIL) 500 Mg Cap 500 MG PO TID for 10 Days, #30 CAP Prov: Sunil Higgins MD 07/18/17 Loratadine (CLARITIN) 10 Mg Tab 1 TAB PO DAILY for 30 Days, #30 TAB Prov: Sunil Higgins MD 07/18/17 Referrals Milly Lombardo ., KEV (PCP) Nicky Hernandez M.D. Forms HOME CARE DOCUMENTATION FORM, IMPORTANT VISIT INFORMATION, WORK / SCHOOL INSTRUCTIONS Patient Instructions Headache Pain, My [facility] [address] Additional Instructions Follow up with DR Medina's office Return for LP for severe headache/stiff neck/fevers Take 1000 mg Tylenol every 6 hours You received narcotic or benzodiazepene medication while in the emergency room today. This is an addictive medication that may cause drowziness as well as constipation. Do not drive, operate heavy machinery, or drink alcohol under the influence of this medication. You have been examined and treated today on an emergency basis only. This is not a substitute for, or an effort to provide, complete comprehensive medical care. It is impossible to recognize and treat all injuries or illnesses in a single emergency department visit. It is therefore important that you follow up closely with Dr Lombardo. Call as soon as possible for an appointment. Thank you for your time and consideration. I look forward to speaking with you again soon. Please don't hesitate to call us if you have any questions. Problem Qualifiers Primary Impression: Headache Headache type: unspecified Headache chronicity pattern: unspecified pattern Intractability: not intractable Qualified Codes: R51 - Headache
[2017-07-18] MEDS ORDERED: SODIUM CHLORIDE 0.9% 1000ML 1,000 ML IV STA (16:48)
[2017-07-18] MEDS ORDERED: SERT50TA PO (16:56)
[2017-07-18 17:40] LABS: BASO % 0.1 %; BASO ABS # 0.01 K/uL (0-0.2); EOS ABS # 0.12 K/uL (0-0.5); HEMATOCRIT 33.1 % (37-47); HEMOGLOBIN 11.1 g/dL (12.0-16.0); IG# 0.05 K/uL (0.00-0.02); LYMPH % 17.2 %; LYMPH ABS # 2.04 K/uL (1.2-3.4); MEAN CELL VOLUME 90.7 fL (80-100); MEAN CORPUSCULAR HEMOGLOBIN 30.4 pg (25-34); MEAN CORPUSCULAR HGB CONC 33.5 g/dl (32-36); MEAN PLATELET VOLUME 11.6 fL (7.4-10.4); MONO % 10.4 %; MONO ABS # 1.24 K/uL (0.11-0.59); NEUT % 70.9 %; NEUT ABS # 8.41 K/uL (1.4-6.5); PLATELET COUNT 230 K/uL (130-400); RED CELL DISTRIBUTION WIDTH CV 13.6 % (11.5-14.5); RED CELL DISTRIBUTION WIDTH SD 44.8 fL (36.4-46.3); WHITE BLOOD COUNT 11.87 K/uL (4.8-10.8)
[2017-07-18 18:00] LABS: ALBUMIN 3.1 gm/dl (3.4-5.0); ALKALINE PHOSPHATASE 104 U/L (45-117); ALT/SGPT 16 U/L (12-78); AST/SGOT 16 U/L (15-37); BLOOD UREA NITROGEN 5 mg/dl (7-18); CALCIUM 8.8 mg/dl (8.5-10.1); CARBON DIOXIDE 24 mmol/L (21-32); CREATININE 0.51 mg/dl (0.60-1.20); GLUCOSE 75 mg/dl (70-99); LIPASE 143 U/L (73-393); SODIUM 137 mmol/L (136-145); TOTAL PROTEIN 7.1 gm/dl (6.4-8.2)
[2017-07-18] MEDS ORDERED: CEFTRIAXONE SOD INJ 1 GM ADDVIAL IV STA (18:31)
--- NOTE | 2017-07-18 19:37 | DIAGNOSTIC IMAGING REPORT ---
MRV HEAD WITHOUT CONTRAST CLINICAL HISTORY: 26 years-old Female presenting with Pt c/o headache. TECHNIQUE: Multisequence, multiplanar MR venography of the head was performed without the use of intravenous contrast. 3-D volumetric and/or maximum intensity projection (MIP) images were subsequently reconstructed for review. IV contrast: None. COMPARISON: None. FINDINGS: Localizer images: Unremarkable. Dural venous sinuses demonstrate normal flow related enhancement. The caliber of the proximal left transverse sinus is diminutive, which is likely on a congenital basis. The straight sinus and great vein of Santos are patent. Internal cerebral veins patent. Cortical veins also appear grossly patent more prominently on the left, which may be related to the congenitally narrow proximal left transverse sinus. No convincing evidence of dural venous thrombosis. Limited evaluation of intracranial arteries within normal limits. 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 No convincing evidence of dural venous sinus thrombosis. If this remains of clinical concern, a contrast enhanced study could be obtained although suspicion for this diagnosis is very low. Electronically signed by: Chad Doe M.D. 07/18/2017 7:36 PM Dictated Date/Time: 07/18/2017 7:31 PM
--- NOTE | 2017-07-18 19:56 | DIAGNOSTIC IMAGING REPORT ---
BRAIN WITHOUT CONTRAST CLINICAL HISTORY: 26 years-old Female presenting with Pt c/o headache, 34 weeks , numbness in the extremities involving the feet and hands, left-sided facial numbness for 3 to 4 days, nausea and vomiting. TECHNIQUE: Multisequence, multiplanar MR imaging of the brain was performed without the use of intravenous contrast. IV contrast: None. COMPARISON: None. FINDINGS: Ventricles and sulci normal in size. Brain parenchyma normal in appearance with preserved mcknight-white differentiation. No mass effect or midline shift. No restricted diffusion to suggest acute ischemia. No hemorrhage. No extra-axial fluid collection. T2 skull base flow voids preserved. Bone marrow signal intensity within the calvarium within normal limits. IMPRESSION: 1. No acute intracranial abnormality. Electronically signed by: Chad Doe M.D. 07/18/2017 7:54 PM Dictated Date/Time: 07/18/2017 7:52 PM
[2017-07-18] MEDS ORDERED: AMOXICILLIN 500 MG CAP PO STA (20:09)
[2017-07-18] MEDS ORDERED: LORATADINE 10 MG TAB PO STA (20:09)
[2017-07-18] MEDS ORDERED: SODIUM CHLORIDE 0.65% NA SOLN 45 ML (OCEAN) STA (20:09)
[2017-07-18] MEDS ORDERED: MoRPHine SULFATE 10 MG/ML CARP/VIAL IV STA (20:12)
[2017-07-18] MEDS ORDERED: LORA10TA51 PO (20:15)
[2017-07-18] MEDS ORDERED: AMOX500C3 PO (20:15)
[2017-07-18] MEDS ORDERED: AMOXICILLIN 250 MG CAP PO ONE (20:20)
[2017-07-18 20:35] VITALS: BP 118/73; PULSE 87; O2SAT 99
== END 2017-07-18 20:37 | disposition home or self-care (01) ==
LOC: C.EDB 16:25 → C.EDC 20:37
DX: R51 Headache (principal); R20.0 Anesthesia of skin; O99.89 Other specified diseases and conditions complicating pregnancy, childbirth and the puerperium; Z3A.34 34 weeks gestation of pregnancy